=== PATIENT | female | born 1995 | race Caucasian/White ===

== ENCOUNTER 2019-06-10 07:38 | Emergency (ER) | payer OTHER, SELFPAY ==
--- NOTE | ~2019-06-10 | US_ITS ---
EXAMINATION: US OB <= 14 weeks fetus DATE: 06/10/2019 08:56 INDICATION: Vaginal bleeding during first trimester TECHNIQUE: Real-time pelvic transabdominal and transvaginal ultrasound was performed. COMPARISON: None. FINDINGS: The uterus measures 14.7 x 11.6 x 8.7 cm. There is an intrauterine gestational sac. There is a 1.4 x 0.6 x 0.3 cm hypoechoic area adjacent to the fundal aspect of the gestational sac. A yolk sac is identified. heart motion is identified measuring 150 beats per minute (bpm) by M-mode Do ppler. The crown rump length measures 5.5 cm , which correlates with an estimated gestational a ge of 12 weeks and 1 day(s) (+/-) 8 day(s). The left ovary is not visualized however no left adnexal abnormality is seen. The right ovary measure s 3.9 x 4.2 x 2.6 cm. There is no free fluid in the pelvis. IMPRESSION: 1. Live intrauterine with an estimated gestational age of 12 weeks and 1 day(s) (+/-) 8 day (s) and an estimated delivery date of 12/22/2019. 2. Small subchorionic hemorrhage. Reviewed, dictated and finalized at location A. IMPRESSION: 1. Live intrauterine with an estimated gestational age of 12 weeks an d 1 day(s) (+/-) 8 day(s) and an estimated delivery date of 12/22/2019. 2. Small subchorionic hemorrhage.
[2019-06-10 07:53] VITALS: BP 131/76; PULSE 92; RESP 14; TEMP 37; O2SAT 100
--- NOTE | 2019-06-10 08:03 | ED.ABDPAIN ---
HPI - Abdominal Pain General Chief Complaint: Vaginal Bleeding Stated Complaint: VAG BLEED 12WKS PREG Time Seen by Provider: 06/10/19 07:41 Source: RN notes reviewed History of Present Illness HPI narrative: Patient presents emergency department from home for vaginal bleeding. Patient states she is approximately 12 weeks and is followed by Dr. Pace. Patient states that last night she had noted several drops of blood when she did use the restroom. States this morning she had had increased bleeding as well as lower abdominal cramping. Patient is G2, P0. States no complications with first . She denies any fevers or chills nausea vomiting or any other symptoms. Related Data Home Medications Medication Instructions Recorded Confirmed No Home Medications 06/10/19 06/10/19 Allergies Allergy/AdvReac Type Severity Reaction Status Date / Time Sulfa (Sulfonamide Allergy Mild HIVES Verified 09/07/16 12:39 Antibiotics) Review of Systems Review of Systems: Narrative: Gen.: Denies fevers or chills ENT: Denies congestion Respiratory: Denies shortness of breath or cough CV: Denies chest pain or palpitations GI: Reports lower abdominal pain, denies nausea vomiting or diarrhea see HPI Musculoskeletal: Denies back pain or muscle pain Neuro: Denies numbness, tingling, weakness or focal weakness Skin: Denies rash Except as documented, all other systems reviewed and negative [facility] Past Medical History Medical History (Updated 06/10/19 @ 09:57 by Nagi Grimaldo DO) Patient denies significant medical history Social History Social History (Updated 06/10/19 @ 08:04 by Nagi Grimaldo DO) Smoking status: Never smoker Gender identity (if verbalized by the patient): Female Exam Narrative: Exam Narrative: APPEARANCE: No acute distress, nontoxic, resting in bed HEENT: Normocephalic, atraumatic, OMM RESPIRATORY: No respiratory distress, clear to auscultation bilaterally with no rhonchi wheezing or rales CARDIOVASCULAR: RRR s murmur ABDOMINAL: Soft, nondistended, tender palpation right lower quadrant left lower quadrant, no tenderness around quadrant left upper quadrant, no rebound or guarding : Normal external exam, small amount of dark maroon blood in vaginal canal, cervix is friable, no cervical motion tenderness MUSCULOSKELETAl: Moves all extremities. No clubbing, cyanosis or edema. NEURO: Awake and alert. Following commands, speech normal, no focal deficits SKIN:: Warm, dry. Normal Color PSYCHIATRIC: Normal affect/mood Course Course Emergency Course: Reviewed old records. Patient with A+ blood type from 10/02/[address] Pace presentation and work-up. Discussed ultrasound results as well as physical exam and friable cervix. At this time agrees with plan for discharge with pelvic rest and follow-up in the office of the patient's scheduled appointment this Discussed with patient results of workup and diagnosis. Discussed need for follow-up with primary care, proper use of medication, and reasons to return to the emergency department. Patient understands and agrees to current treatment plan Vital Signs Vital signs: Vital Signs Temperature 98.6 F 06/10/19 07:53 Pulse Rate 92 06/10/19 07:53 Respiratory Rate 14 06/10/19 07:53 Blood Pressure 131/76 06/10/19 07:53 Pulse Oximetry 100 06/10/19 07:53 Temperature 98.6 F 06/10/19 07:53 Pulse Rate 92 06/10/19 07:53 Respiratory Rate 14 06/10/19 07:53 Blood Pressure 131/76 06/10/19 07:53 Pulse Oximetry 100 06/10/19 07:53 MDM - Abdominal Pain Lab Data Result diagrams: 06/10/19 08:21 06/10/19 08:21 Labs: Lab Results 06/10/19 06/10/19 Range/Units 08:21 08:21 WBC 8.2 (4.5-10.0) K/mm3 RBC 4.02 L (4.2-5.4) M/mm3 Hgb 11.6 L (12.0-15.0) g/dL Hct 34.4 L (37.0-47.0) % MCV 85.6 (80-100) fl MCH 28.9 (26-34) pg MCHC 33.7 (32-36)
[2019-06-10] MEDS: SODIUM CHLORIDE 0.9% IV 1,000 ML 999 ML IV CONT (08:31)
[2019-06-10 08:32] LABS: Basophils Percent Auto 0.5 % (0.2-1.2); Eosinophils Absolute Auto 0.1 K/mm3 (0-0.3); Eosinophils Percent Auto 0.8 % (0-4.4); Hematocrit 34.4 % (37.0-47.0); Hemoglobin 11.6 g/dL (12.0-15.0); Immature Granulocyte Absolute 0.03 K/mm3 (0.00-0.031); Immature Granulocyte Percent A 0.4 % (0-0.5); Lymphocytes Absolute Auto 2.35 K/mm3 (0.9-3.2); Lymphocytes Percent Auto 28.5 % (18.3-44.2); Mean Corpuscular HGB Conc 33.7 g/dl (32-36); Mean Corpuscular Hemoglobin 28.9 pg (26-34); Mean Corpuscular Volume 85.6 fl (80-100); Monocytes Absolute Auto 0.6 K/mm3 (0.1-0.6); Monocytes Percent Auto 7.2 % (2.6-8.5); Neutrophils Absolute Auto 5.2 K/mm3 (1.3-6.7); Neutrophils Percent Auto 62.6 % (45.5-73.1); Platelet Count Result 186 k/mm3 (150-375); Red Blood Count 4.02 M/mm3 (4.2-5.4); Red Cell Distribution Width 13.5 % (11.5-14.5); White Blood Count 8.2 K/mm3 (4.5-10.0)
--- NOTE | 2019-06-10 08:36 | PC.NURSE ---
RN attempted to locate heart tones, but was unsuccessful. EDP notified. Ultrasound has arrived to take Pt.
[2019-06-10 08:43] LABS: Potassium 3.7 mmol/L (3.4-5.0)
[2019-06-10 08:47] LABS: Blood Urea Nitrogen 9 mg/dL (7-17); Calcium 9.2 mg/dL (8.4-10.2); Carbon Dioxide 22 mmol/L (22-30); Chloride 106 mmol/L (98-107); Estimated CRCL calculation 138 ml/min; Estimated Glomerular Filt Rate > 60; Glucose 87 mg/dL (65-105); Sodium 136 mmol/L (137-145)
[2019-06-10 10:08] VITALS: BP 128/70; PULSE 88; RESP 14; O2SAT 99
== END 2019-06-10 10:10 | disposition home or self-care (01) ==
PROVIDERS: Emergency Provider Emergency Medicine
DX: O20.0 Threatened abortion (principal); Z3A.12 12 weeks gestation of pregnancy
CPT/HCPCS: 36415; 76801; 80048; 81025; 85025; 96361; 96374; 99284; J0131; J7030

== ENCOUNTER 2019-12-16 04:50 | Inpatient (IN) | payer OTHER, SELFPAY ==
[2019-12-16] VITALS (65 sets, daily range): BP systolic 90–150; BP diastolic 43–118; PULSE 64–134; RESP 18–20; TEMP 36.4–36.8; O2SAT 81–100; BMI 32.1
--- NOTE | 2019-12-16 05:33 | LDADM ---
This patient, Annette Tiwari, was admitted to Labor/Delivery/Recovery 107 on 12/16/19 at 04:50. Plans for labor, pain management and were discussed with patient. Patient/family oriented to hospital policies and general routines including ID bracelet, bed and alarms, visiting hours, pain management, procedures, bathroom and other care routines, personal items, smoking policy, room service/diet and guest tray routines, security routines, and visiting hours. Patient/Family are encouraged to report perceived risks to care and to ask questions if they do not understand what they are told or what they should do. See OBIX for further documentation.
[2019-12-16 05:43] LABS: Basophils Percent Auto 0.4 % (0.2-1.2); Eosinophils Absolute Auto 0.1 K/mm3 (0-0.3); Eosinophils Percent Auto 0.6 % (0-4.4); Hemoglobin 11.1 g/dL (12.0-15.0); Immature Granulocyte Absolute 0.12 K/mm3 (0.00-0.031); Immature Granulocyte Percent A 1.1 % (0-0.5); Lymphocytes Absolute Auto 2.09 K/mm3 (0.9-3.2); Lymphocytes Percent Auto 19.2 % (18.3-44.2); Mean Corpuscular HGB Conc 32.6 g/dl (32-36); Mean Corpuscular Hemoglobin 28.7 pg (26-34); Mean Corpuscular Volume 87.9 fl (80-100); Mean Platelet Volume 10.6 fl (7.4-10.4); Monocytes Absolute Auto 0.7 K/mm3 (0.1-0.6); Monocytes Percent Auto 6.2 % (2.6-8.5); Neutrophils Absolute Auto 7.9 K/mm3 (1.3-6.7); Neutrophils Percent Auto 72.5 % (45.5-73.1); Platelet Count Result 180 k/mm3 (150-375); Red Blood Count 3.87 M/mm3 (4.2-5.4); Red Cell Distribution Width 14.2 % (11.5-14.5); White Blood Count 10.9 K/mm3 (4.5-10.0)
[2019-12-16] MEDS: OXYTOCIN 30 UNITS/NS 500 ML 30 UNITS/500 ML BAG IV CONT (06:30)
[2019-12-16] MEDS: AMPICILLIN 2 GM/NS 100 ML 2 GM/100 ML BAG IVPB (06:30)
[2019-12-16] MEDS: LACTATED RINGERS 1,000 ML 125 ML IV CONT (06:31)
--- NOTE | 2019-12-16 07:16 | WPDANESEPP ---
Anes - Eval Pre Procedure Procedure: Labor epidural Date/Time: 12/16/19 07:16 Surgeon: Jaime Florence M.D. Preop Diagnosis: pain during labor Pre Op Diagnosis: Induction Patient Data Age: 24 Gender: F Height: 1.7 m Weight: 93.2 kg Last Vital Signs Pulse 92 12/16/19 07:14 BP 116/75 12/16/19 07:14 Allergies Allergy/AdvReac Type Severity Reaction Status Date / Time Sulfa (Sulfonamide Allergy Mild HIVES Verified 12/08/19 15:32 Antibiotics) Home Medications Medication Instructions Recorded Confirmed Type ferrous sulfate [Slow Fe] 142 mg PO DAILY 12/08/19 12/16/19 History prenat.vits,ines,qsx-viti-fjqol 1 tablet PO DAILY 12/08/19 12/16/19 History [ #2] vitamin B complex [B 1 tablet PO DAILY 12/08/19 12/16/19 History Complex-Vitamin B12] Laboratory Tests 12/16/19 12/16/19 12/16/19 05:37 05:37 05:37 WBC 10.9 K/mm3 H K/mm3 (4.5-10.0) RBC 3.87 M/mm3 L M/mm3 (4.2-5.4) Hgb 11.1 g/dL L g/dL (12.0-15.0) Hct 34.0 % L % (37.0-47.0) MCV 87.9 fl fl (80-100) MCH 28.7 pg pg (26-34) MCHC 32.6 g/dl g/dl (32-36) RDW 14.2 % % (11.5-14.5) Plt Count 180 k/mm3 k/mm3 (150-375) MPV 10.6 fl H fl (7.4-10.4) Immature Gran % (Auto) 1.1 % H % (0-0.5) Neut % (Auto) 72.5 % % (45.5-73.1) Lymph % (Auto) 19.2 % % (18.3-44.2) Dyer % (Auto) 6.2 % % (2.6-8.5) Eos % (Auto) 0.6 % % (0-4.4) Baso % (Auto) 0.4 % % (0.2-1.2) Lymph # (Auto) 2.09 K/mm3 K/mm3 (0.9-3.2) Dyer # (Auto) 0.7 K/mm3 H K/mm3 (0.1-0.6) Eos # (Auto) 0.1 K/mm3 K/mm3 (0-0.3) Baso # (Auto) 0.0 K/mm3 K/mm3 (0.0-0.1) Abs Immat Gran (auto) 0.12 K/mm3 H K/mm3 (0.00-0.031) Absolute Neuts (auto) 7.9 K/mm3 H K/mm3 (1.3-6.7) Absolute Nucleated RBC 0.0 K/mm3 K/mm3 (0.0-0.012) Nucleated RBC % 0.0 % % (0.0-0.2) RPR Pending Blood Type A Positive Antibody Screen Negative Patient hx anesthesia problems: none Family hx anesthesia problems: none PMFSH Past Medical History Medical History (Updated 12/16/19 @ 07:16 by Dennise Blue CRNA) Patient denies significant medical history Family History Family History (Updated 12/08/19 @ 15:38 by Carmen Puckett RN) Sibling History of ITP Mother Anemia Grandparent Hypertension Diabetes mellitus Grandparent Hypertension Diabetes mellitus Grandparent Colon adenoma Rectal cancer Social History Social History (Updated 06/10/19 @ 08:04 by Nagi Grimaldo DO) Smoking status: Never smoker Substance use: never Gender identity (if verbalized by the patient): Female Spiritual care concerns: No Exam Day of Procedure 12/16/19 07:16
--- NOTE | 2019-12-16 07:25 | WPDOBADMIT ---
Obstetrics - Admit Note Admission Note: record reviewed. No pertinent additions to the history and/or any subsequent changes in the physical findings that are not consistent with the expected course of the were found. EIL at 39 weeks, no complications SVE /-3, Additions to the history and/or subsequent changes in the physical findings follow. None.
[2019-12-16] MEDS: AMPICILLIN 1 GM/NS 50 ML 1 GM/50 ML BAG IVPB (11:00)
[2019-12-16] MEDS: fentaNYL CITRATE INJ (*CRX) 100 MCG/2 ML VIAL 50 MCG IV PUSH (15:19)
--- NOTE | 2019-12-16 15:29 | P.PCNOB_ITS ---
OB - Delivery Note Procedure Delivery date: 12/16/19 Procedure: Vaginal delivery. Induction method: AROM and per pitocin protocol Delivery monitor: external FHT and external uterine Route of delivery: Episiotomy description: None Laceration Description: Periurethral Delivery repair: other (none) Specimen: Yes Estimated blood loss (mL): 310 Anesthesia type: None Disposition: other () [place] Baby Date of : 12/16/19 Time of : 15:04 Weeks of gestation at delivery: 39 gender: Female presentation: vertex position: Left Occiput Anterior Placenta delivery description: Spontaneous and Manual Removal cord vessel description: 3 Vessels score one minute: 8 score five minutes: 9 Narrative: Mom and baby stable condition and [id number].
[2019-12-16] MEDS: OXYTOCIN 30 UNITS/NS 500 ML 30 UNITS/500 ML BAG 125 UNITS IV CONT (15:38)
[2019-12-16] MEDS: BENZOCAINE 20% AER SPR (*SP) 56 GM CAN 1 SPRAY TOPICAL (17:18)
[2019-12-16] MEDS: WITCH HAZEL 40 PADS 1 PAD TOPICAL (17:19)
--- NOTE | 2019-12-16 18:30 | PC.NURSE ---
Addendum entered by Elaina Bob RN 12/16/19 18:31: Pt. admitted at 1737 to room 282. Original Note: Patient transferred to post room #282 per wheelchair. Support person present. Oriented to unit, room, information board, rooming in, admission packet and security measures. Patient verbalizes understanding.
--- NOTE | 2019-12-17 02:03 | PC.NURSE ---
Daylight Savings Time For Daylight Savings Time Ending in the Fall - Clocks are moved back. For Daylight Savings Time Beginning in the Spring - Clocks are moved ahead. For [facility], the time of change occurs at 0200 hrs. Time is taken from the cmm technician. This entry on the patient's chart recognizes the change in time reflected during documentation. Example: 2 entries for vital signs may be charted for 0200 hrs.
[2019-12-17 05:44] LABS: Hematocrit 30.9 % (37.0-47.0); Hemoglobin 10.2 g/dL (12.0-15.0)
[2019-12-17 08:00] VITALS: BP 111/64; RESP 82; TEMP 36.8; O2SAT 100
[2019-12-17] MEDS: POLYSACCHARIDE IRON COMPLEX 150 MG CAPSULE PO ×2 (08:02→15:12)
[2019-12-17] MEDS: DOCUSATE SODIUM 100 MG CAPSULE PO ×2 (08:02→15:11)
--- NOTE | 2019-12-17 09:17 | PM.OBPNVD ---
OB - PN: Subj Subjective Date/time seen: 12/17/19 09:17 Patient comments: no complaints baby status: doing well OB - PN: Obj Data Labs CBC & Chem 7: 12/17/19 05:16 Labs: Laboratory Results - last 24 hr 12/17/19 05:16 Hgb 10.2 L Hct 30.9 L OB - PN A/P Plan day: 1 Plan: routine care and discharge home Time Spent With Patient Time: Total time spent is greater than 50% in coordination of care (as documented) at patient's floor/unit and/or counseling patient: Review of Systems Review of Systems: All systems reviewed & are unremarkable except as noted in HPI and below Exam Const: General: cooperative Nutritional Appearance: average body habitus Orientation/consciousness: patient oriented x3
--- NOTE | 2019-12-17 10:00 | PC.NURSE ---
Patient viewed the discharge video Mother & Baby Care, The First Two Weeks . Patient was given the opportunity and encouraged to ask questions. Patient verbalized understanding of information shared and has been given the mother/baby guide for home reference.
[2019-12-17] MEDS: WITCH HAZEL 40 PADS 1 PAD TOPICAL (15:11)
[2019-12-17] MEDS: BENZOCAINE 20% AER SPR (*SP) 56 GM CAN 1 SPRAY TOPICAL (15:11)
[2019-12-17] MEDS: HYDROCORTISONE 1% 30 GM CREAM 1 APPLIC TOPICAL (17:50)
[2019-12-17 20:10] VITALS: BP 109/69; PULSE 87; RESP 18; TEMP 36.7; O2SAT 100
[2019-12-18 08:00] VITALS: BP 131/61; PULSE 100; RESP 18; TEMP 36.8; O2SAT 100
--- NOTE | 2019-12-18 08:08 | PM.OBPNVD ---
OB - PN: Subj Subjective Date/time seen: 12/18/19 08:08 Patient comments: no complaints baby status: doing well OB - PN: Obj Data Labs CBC & Chem 7: 12/17/19 05:16 OB - PN A/P Plan day: 2 Plan: routine care and discharge home (F/U in 4 weeks) Time Spent With Patient Time: Total time spent is greater than 50% in coordination of care (as documented) at patient's floor/unit and/or counseling patient: Time with patient: less than 15 minutes Review of Systems Review of Systems: All systems reviewed & are unremarkable except as noted in HPI and below Exam Narrative: Exam Narrative: Fundus firm and vaginal flow controlled. No lower ext redness, warmth, or edema. Negative homans. Const: General: comfortable Chest: Breast/axilla inspection: normal inspection of the breasts Resp: Effort & Inspection: normal respiratory effort Cardio: Rate: regular rate GI: GI Palp: Yes Soft to palpation Psych: Appearance: grossly normal Affect: normal affect Attitude: cooperative Thought content: Yes Normal thought content present Judgement: Good judgement present (Psych)
--- NOTE | 2019-12-18 08:11 | WPDOBCIRC ---
OB [place] - Circumcision Consent: Potential risks, benefits, and alternatives have been discussed and questions answered. Family agrees to proceed with circumcision. Preoperative Diagnosis: Normal Foreskin. Postoperative Diagnosis: Normal Foreskin. Date of Circumcision: 12/18/19 Time of Circumcision: 08:05 Type of Circumcision: GOMCO with 1.1 Anesthesia: Dorsal Nerve Block Foreskin: The foreskin was examined and found to be grossly normal. Estimated Blood Loss: None
[2019-12-18] MEDS: WITCH HAZEL 40 PADS 1 PAD TOPICAL (09:40)
[2019-12-18] MEDS: BENZOCAINE 20% AER SPR (*SP) 56 GM CAN 1 SPRAY TOPICAL (09:40)
[2019-12-18] MEDS: DOCUSATE SODIUM 100 MG CAPSULE PO (09:41)
[2019-12-18] MEDS: MULTIVIT/MIN/PREN/FOL AC/IRON TABLET 1 TAB PO (09:41)
[2019-12-18 09:56] LABS: Rapid Plasma Reagin Non-Reactive (NonReactive)
--- NOTE | 2019-12-18 10:21 | PC.NURSE ---
Self care and infant care discharge instructions given including follow up visit date and time. Mother verbalized understanding. No questions or concerns voiced. Very pleasant and cooperative. FOB at side.
[2019-12-20 10:30] VITALS: BP 124/76; PULSE 88; RESP 16; TEMP 36.8; O2SAT 99
--- NOTE | 2019-12-23 08:22 | PM.OBDSVD ---
DS: Admitting Diagnosis Admitting Diagnosis Admitting Diagnosis: Induction OB - DS: Summary OB Procedures : None OB Procedures Intrapartum: Spontaneous Vag Delivery OB Procedures: : None Time Spent with Patient Time attestation: Total time spent providing and/or coordinating discharge services: DS: Data Data Completed and Pending Completed studies during hospitalization: Pending at discharge 12/16/19 15:20 Surgical [PTH] Routine Discharge Plan Discharge Attending physician on discharge: Rosa Maria Florence Consulting providers: Padma Schroeder ; Rachel Beckford Discharging Clinician: Padma Schroeder Patient Disposition: Home, Self-Care Activity: pelvic rest Diet: regular Discharge Instructions: Education: Mom and Baby Guide Given to: Mother Follow-Up: Call your delivering provider's office for an appointment to be seen in: 4 Weeks Mom and baby should come to the [facility] for the follow-up appointment. Appointment Date/Time: December 20, 2019 at 11:00 am What to expect at your follow-up visit: Blood Pressure Check Physical Assessment Call [phone] if you are unable to keep your appointment time. BREAST CARE: * Wear a snug supportive bra. * For engorgement discomfort: Breast Feeding: * Apply warm moist washcloths * Express milk as needed to relieve engorgement * Wear loose clothing Bottle Feeding: * May apply ice packs * For sore nipples: * Identify correct latch-on * Apply warm moist washcloths before and after nursing * Air dry nipples after nursing * May apply Lansinoh cream to nipples EPISIOTOMY/PERINEAL CARE: * Until bleeding stops, use your ranjeet bottle after urinating * Change your pad frequently throughout the day * You may take sitz baths several times a day (fill your bathtub with warm water and soak for 20 minutes.) Do NOT bathe in the water * No tub baths until seen by your physician - You may shower ACTIVITY: * Rest as much as possible. * Do not exercise or lift anything heavier than your baby (such as laundry or other children.) * Avoid stairs or driving as much as possible. * Do not put anything into the vagina. No douching, tampons, or sexual activity until seen by physician. NOTIFY PHYSICIAN IF YOU HAVE ANY QUESTIONS OR IF ANY OF THE FOLLOWING SYMPTOMS OCCUR: * If your episiotomy becomes red, swollen, or more painful than what you have experienced in the hospital. * If your vaginal bleeding becomes foul smelling. * If your vaginal bleeding becomes more heavy than a period or if your bleeding changes from pink to bright red. However, you may pass an occasional walnut-sized clot once or twice for the first week . * If you experience a sharp, shooting pain in you calves. * If you discover a hard, reddened area on your breast or if you experience flu-like symptoms. DIET: * Eat regular, well-balanced meals. * Drink plenty of fluids daily. If , drink to thirst. Patient Instructions: Antibiotic Form Stand Alone Forms: General Discharge Information Follow-up/Referrals: Padma Schroeder CNM [Certified Nurse Veterinary Assistant Technician] - 4 Weeks Discharge Medications: Continued vitamin B complex [B Complex-Vitamin B12] Tablet 1 tablet PO DAILY RF: 0 prenat.vits,ines,vzc-inqz-pipqg Tablet 1 tablet PO DAILY RF: 0 Slow Fe 142 mg (45 mg iron) Tablet Extended Release 142 mg PO DAILY RF: 0 Date of admission: 12/16/19 04:50 Primary Care Provider: PHYSICIAN NOT ON STAFF,NONSTAFF Admitting Provider: Rosa Maria Florence Attending physician on admission: Rosa Maria Florence Condition: Stable
== END 2019-12-18 11:47 | disposition home or self-care (01) | DRG 807 ==
LOC: ANHLDR 04:56 → ANHOB2 17:41
PROVIDERS: Advanced Practice Midwife; Admitting Provider Obstetrics & Gynecology; Visit Provider Obstetrics & Gynecology
DX: O99.824 Streptococcus B carrier state complicating childbirth (principal); Z37.0 Single live birth; Z3A.39 39 weeks gestation of pregnancy; O36.8330 Maternal care for abnormalities of the fetal heart rate or rhythm, third trimester, not applicable or unspecified; O43.123 Velamentous insertion of umbilical cord, third trimester; O71.82 Other specified trauma to perineum and vulva
CPT/HCPCS: 36415; 85014; 85018; 85025; 86592; 86850; 86900; 86901; 88307; A9270; J0290; J2590; J3010; J7120